=== PATIENT | female | born 1990 | race Hispanic/Latino ===

== ENCOUNTER 2019-06-12 11:20 | Inpatient (IN) | payer MEDICAID ==
[~2019-06-12] VITALS: Ht 167.6 cm; Wt 133.4 kg
[2019-06-12 13:07] LABS: HEMATOCRIT 43.8 % (36-48); MEAN CORPUSCULAR HEMOGLOBIN 31.2 pg (27.0-33.0); MEAN CORPUSCULAR HGB CONC 34.4 g/dL (32.0-36.0); MEAN CORPUSCULAR VOLUME 90.7 fL (79-99); PLATELET COUNT (AUTO) 262 K/uL (130-400); RED BLOOD CELL COUNT(AUTO) 4.83 MIL/uL (4.00-5.50); RED CELL DISTRIBUTION WIDTH 12.8 % (11.0-15.5)
[2019-06-12 13:21] LABS: CREATININE 0.6 mg/dL (0.5-1.5); POTASSIUM 4.1 mmol/L (3.5-5.1)
[2019-06-12 13:24] LABS: APPEARANCE,URINE Clear (CLEAR); BILIRUBIN,URINE Negative (NEGATIVE); COLOR,URINE Yellow (YELLOW); GLUCOSE, URINE (UA) Negative (NEGATIVE); KETONES,URINE Negative (NEGATIVE); LEUKOCYTE ESTERASE ,URINE Trace (NEGATIVE); NITRATE,URINE Negative (NEGATIVE); OCCULT BLOOD,URINE Nonhemolyzed Trace (NEGATIVE); PROTEIN,URINE POS 1+ mg/dL (NEGATIVE); UROBILINOGEN,URINE 0.2 mg/dL (0.2-1.0)
[2019-06-12 13:27] LABS: INR 0.93 (0.85-1.15); PARTIAL THROMBOPLASTIN TIME 28.8 SEC (26.3-35.5); PROTHROMBIN TIME 9.8 SEC (9.6-11.6)
[2019-06-12 13:29] LABS: ALBUMIN 2.9 g/dL (3.5-5.0); BILIRUBIN,TOTAL 0.3 mg/dL (0.2-1.0); TOTAL PROTEIN, SERUM 7.3 g/dL (6.0-8.3); URIC ACID 4.7 mg/dL (2.6-7.2)
[2019-06-12 13:50] LABS: BACTERIA,URINE Rare /HPF (None Seen); RBC,URINE 0-1 /HPF (0-1); WBC,URINE 0-1 /HPF (0-1)
[2019-06-12] MEDS: LACTATED RINGERS 1000ML 1,000 ML IV PRN (19:25)
[2019-06-12] MEDS ORDERED: ACETAMINOPHEN EXTRA STRENGTH 500 MG TABLET PO PRN (20:15)
[2019-06-13] MEDS: LACTATED RINGERS 1000ML 1,000 ML IV PRN (04:29)
[2019-06-13 05:10] LABS: HEPATITIS Bs ANTIGEN SCREEN P Negative (Negative)
[2019-06-13] MEDS ORDERED: CEFAZOLIN SODIUM 1 GM VIAL IVP PRN (06:00)
[2019-06-13] MEDS ORDERED: LACTATED RINGERS 1000ML 1,000 ML IV SCH (06:00)
[2019-06-13] MEDS ORDERED: DURAMORPH PF1 MG/ML 10ML AMP IV ONE (06:40)
[2019-06-13] MEDS ORDERED: OXYTOCIN 10 USP UNITS/ML ONE ×2 (06:40→07:11)
[2019-06-13] MEDS ORDERED: ONDANSETRON HCL 4 MG/2 ML VIAL ONE (06:40)
[2019-06-13] MEDS ORDERED: FENTANYL CITRATE PF 50 MCG/1 ML 2ML VIAL ONE (06:41)
[2019-06-13] MEDS ORDERED: CALDOLOR 800MG+NS 250ML 250 ML IV ONE (07:07)
[2019-06-13] MEDS ORDERED: METOCLOPRAMIDE 10 MG/2 ML VIAL ONE (07:13)
[2019-06-13] MEDS ORDERED: PHENYLEPHRINE HCL 10 MG/ML 1ML VIAL IV ONE (07:59)
[2019-06-13] MEDS ORDERED: DEXTROSE 5%-LACTATED RINGERS 1,000 ML IV PRN (08:34)
[2019-06-13] MEDS ORDERED: SODIUM CHLORIDE 0.9% 10 ML VIAL IVP PRN (08:45)
[2019-06-13] MEDS ORDERED: DEXTROSE 5 %-0.45 % NACL 1,000 ML IV PRN (08:45)
[2019-06-13] MEDS ORDERED: PROMETHAZINE HCL 25 MG/ML 1ML AMPULE IM PRN (08:45)
[2019-06-13] MEDS ORDERED: MEPERIDINE-PF 75 MG/ML SYG IM PRN (08:45)
[2019-06-13] MEDS ORDERED: DiphenhydrAMINE HCL 50 MG/ML VIAL ONE (10:10)
[2019-06-13] MEDS ORDERED: ONDANSETRON HCL 4 MG/2 ML VIAL IVP PRN (10:45)
[2019-06-13] MEDS ORDERED: DiphenhydrAMINE HCL 50 MG/ML VIAL IVP PRN (10:45)
[2019-06-13] MEDS ORDERED: NALOXONE HCL 0.4 MG/1 ML ML IVP PRN ×3 (10:45)
[2019-06-13] MEDS ORDERED: EPHEDRINE SULFATE 50 MG/ML AMPULE IVP PRN (10:45)
[2019-06-13 11:04] VITALS: BP 144/88
[2019-06-13 11:07] VITALS: BP 131/84
[2019-06-13] MEDS ORDERED: PNV71COM3 PO (11:26)
[2019-06-13] MEDS: ACETAMINOPHEN-CODEINE 300/30MG TAB PO PRN (14:13)
[2019-06-13] MEDS ORDERED: HYDROCODONE/ACETAMINOPHEN 5/325 MG TAB PO PRN (14:15)
[2019-06-13] MEDS ORDERED: OXYTOCIN-LR 20 UNITS/1000 ML 1,000 ML IV ONE (16:08)
[2019-06-13] MEDS: CALDOLOR 800MG+NS 250ML 250 ML IV SCH ×2 (16:20→23:52)
[2019-06-13 16:26] VITALS: BP 135/78
[2019-06-13 19:25] VITALS: BP 133/74
[2019-06-13 23:21] VITALS: BP 123/76
[2019-06-14 03:20] VITALS: BP 96/54
--- NOTE | 2019-06-14 03:30 | NUR ---
ACTIVITY/COMFORT ABD BINDER APPLIED, ASSISTED TO SIDE OF BED TO DANGLE/ DENIES ANY DIZZINESS, UP TO SIDE OF BED , TOOK STEPS TO SIT ON CHAIR , TOLERATED WELL, JESS NURSE IN TO ASSIST W/ Addendum: 06/14/19 at 0341 by EDUARDO BELLAMY LVN Amended: Links added.
[2019-06-14] MEDS: ACETAMINOPHEN-CODEINE 300/30MG TAB PO PRN (04:06)
--- NOTE | 2019-06-14 05:05 | NUR ---
ACTIVITY/THOMPSON CATHETER/COMFORT ASSISTED BACK TO BED, VERBALIZED HAD GOOD PAIN RELIEF W/MED/ F/C REMOVED, CATHETER INTACT, TOLERATED WELL, ENCOURAGED TO CALL FOR ASSISTANCE WHEN SHE HAS URGE TO VOID, ACKNOWLEDGES UNDERSTANDING Addendum: 06/14/19 at 0522 by EDUARDO BELLAMY LVN Amended: Links added.
[2019-06-14 07:07] LABS: HEMATOCRIT 34.1 % (36-48); MEAN CORPUSCULAR HEMOGLOBIN 31.6 pg (27.0-33.0); MEAN CORPUSCULAR HGB CONC 34.5 g/dL (32.0-36.0); MEAN CORPUSCULAR VOLUME 91.4 fL (79-99); PLATELET COUNT (AUTO) 196 K/uL (130-400); RED BLOOD CELL COUNT(AUTO) 3.73 MIL/uL (4.00-5.50); RED CELL DISTRIBUTION WIDTH 12.9 % (11.0-15.5); WHITE BLOOD COUNT (AUTO) 11.1 K/uL (4.8-10.8)
[2019-06-14 07:25] VITALS: BP 121/71
[2019-06-14] MEDS: IBUPROFEN 800 MG TAB PO SCH ×2 (08:25→17:21)
[2019-06-14] MEDS ORDERED: ACETAMINOPHEN EXTRA STRENGTH 500 MG TABLET PO PRN (08:30)
[2019-06-14] MEDS ORDERED: DIPHENHYDRAMINE HCL 25 MG CAPSULE PO PRN (08:30)
[2019-06-14] MEDS ORDERED: LANOLIN 30GM OINTMENT TP PRN (08:30)
[2019-06-14] MEDS ORDERED: ACETAMINOPHEN-CODEINE 300/30MG TAB PO PRN (08:30)
[2019-06-14] MEDS ORDERED: HYDROCODONE/ACETAMINOPHEN 5/325 MG TAB PO PRN (08:30)
[2019-06-14] MEDS ORDERED: BISACODYL 10 MG SUPP.RECT RC PRN (08:30)
--- NOTE | 2019-06-14 10:02 | NUR ---
ACTIVITY PT AMBULATING HALLWAY, STEADY GAIT, TOLERATING WELL, ACCOMPANIED BY SPOUSE, NO C/O PAIN
[2019-06-14] MEDS: DOCUSATE SODIUM 100 MG CAP PO SCH ×2 (10:06→21:11)
[2019-06-14] MEDS: SIMETHICONE 80 MG TAB.CHEW PO PRN ×3 (10:06→21:11)
--- NOTE | 2019-06-14 16:40 | NUR ---
ACTIVITY PT AMBULATING HALLWAY, STEADY GAIT, ACCOMPANIED BY SPOUSE, TOLERATING WELL, C/O PAIN, WILL MEDICATE WHEN RETURNS TO ROOM
[2019-06-14 17:19] VITALS: BP 118/73
--- NOTE | 2019-06-14 18:43 | NUR ---
CONSULT REQUEST MADE BY PATIENT TO SEE FITNESS MANAGEMENT DIRECTOR. PT STATES BABY HAS BEEN LATCHING "VERY WELL" THROUGHOUT STAY AND HAS BEEN VERY SUCCESSFUL AT UNTIL TODAY. STATES AT 1700 BABY DID NOT WANT TO BREASTFEED. PT STATES SHE FEELS TIRED AND OVERWHELMED AND DID NOT SLEEP LAST NIGHT. PT STATES BABY HAS BEEN HAVING VOIDS AND STOOLS AND FEELS SHE IS POSITIONING BABY WELL. REINFORCED TO MOM THAT SHE IS DOING A GOOD JOB. QUESTIONS REGARDING INVITED. ENCOURAGED PT TO LIMIT PACIFIER USE AND CONTINUE SKIN TO SKIN TO SOOTHE BABY. ENCOURAGED PT TO NOTIFY CONSULT AND NURSING STAFF FOR ANY ASSISTANCE.
[2019-06-14 19:25] VITALS: BP 126/99
--- NOTE | 2019-06-14 19:40 | NUR ---
Activity: Patient up in the bathroom took a shower. Denies any pain.
[2019-06-14 23:22] VITALS: BP 119/63
[2019-06-15] MEDS: IBUPROFEN 800 MG TAB PO SCH ×2 (00:41→08:11)
[2019-06-15 03:25] VITALS: BP 121/60
--- NOTE | 2019-06-15 08:00 | NUR ---
ASSESSMENT: RECEIVED RESTING IN BED, EXPLAINED POC AND UNDERSTANDING VERBALIZED, CALL MCGARRY AT HER SIDE.
[2019-06-15] MEDS: SIMETHICONE 80 MG TAB.CHEW PO PRN (08:11)
[2019-06-15] MEDS: DOCUSATE SODIUM 100 MG CAP PO SCH (08:11)
[2019-06-15 08:13] VITALS: BP 127/85
--- NOTE | 2019-06-15 09:10 | NUR ---
ASSESSMENT: DR NAPIER HERE AND ASSESSED PT AND DISCUSSED POC FOR DISCHARGE HOME. UNDERSTANDING VERBALIZED AND AGREES WITH POC.
--- NOTE | 2019-06-15 11:27 | NUR ---
DISCHARGE: DISCHARGE INSTRUCTIONS GIVEN TO PT ON SELF CARE POST VAGINAL DELIVERY. REVIEWED RX'S FOR HOME MEDS, TO FOLLOW UP WITH DR Lucretia LOUIE ON 07/05 AT 1345 OR SOONER IF NEEDED. UNDERSTANDING VERBALIZED AND COPIES OF ALL INSTRUCTIONS GIVEN TO PT.
[2019-06-15 11:45] VITALS: BP 118/78
--- NOTE | 2019-06-15 12:20 | NUR ---
DISCHARGE: DISCHARGED HOME WITH BABY IN HER ARMS VIA W/C TO PRIVATE CAR WITH .
== END 2019-06-15 12:20 | disposition home or self-care (01) | DRG 540 ==
LOC: LDH 11:20 → OBSVTOIN 11:20 → WSH 06-13 11:00
PROVIDERS: ADMIT Obstetrics & Gynecology; ATTEND Obstetrics & Gynecology
PROC: 10D00Z1 Extraction of Products of Conception, Low, Open Approach (ICD-10-PCS; principal; 2019-06-13 07:00)
DX: O24.420 Gestational diabetes mellitus in childbirth, diet controlled (principal); E66.01 Morbid (severe) obesity due to excess calories; O99.824 Streptococcus B carrier state complicating childbirth; O99.214 Obesity complicating childbirth; O14.04 Mild to moderate pre-eclampsia, complicating childbirth; Z37.0 Single live birth; Z3A.39 39 weeks gestation of pregnancy
CPT/HCPCS: 36415; 59510; 76805; 80053; 81001; 84550; 85027; 85384; 85610; 85730; 86592; 86850; 86900; 86901; 87340; A4344; A4450; G0378; J0690; J1200; J1741; J2274; J2370; J2405; J2590; J2765; J3010; J7120

== ENCOUNTER 2021-08-28 17:20 | Emergency (ER) | payer MEDICAID ==
[~2021-08-28] VITALS: Ht 167.6 cm; Wt 132.1 kg
[~2021-08-28 17:20] MED LIST: PNV71COM3 PO
[2021-08-28] MEDS ORDERED: PROMETHAZINE HCL 25 MG/ML 1ML AMPULE IM ONE (18:00)
[2021-08-28] MEDS ORDERED: 0.9%NACL 1000ML 1,000 ML IV ONE (18:00)
[2021-08-28 18:06] LABS: BASOPHILS % (AUTO) 0.4 % (0.0-5.0); EOSINOPHILS % (AUTO) 0.6 % (0.0-8.0); HEMATOCRIT 41.7 % (36-48); LYMPHOCYTES % (AUTO) 17.3 % (21.0-51.0); MEAN CORPUSCULAR HEMOGLOBIN 30.6 pg (27.0-33.0); MEAN CORPUSCULAR HGB CONC 34.1 g/dL (32.0-36.0); MEAN CORPUSCULAR VOLUME 89.9 fL (79-99); MONOCYTES % (AUTO) 8.6 % (3.0-13.0); NEUTROPHILS % (AUTO) 72.9 % (40.0-77.0); PLATELET COUNT (AUTO) 264 K/uL (130-400); RED BLOOD CELL COUNT(AUTO) 4.64 MIL/uL (4.00-5.50); WHITE BLOOD COUNT (AUTO) 8.2 K/uL (4.8-10.8)
[2021-08-28 18:09] LABS: APPEARANCE,URINE Clear (CLEAR); BILIRUBIN,URINE Negative (NEGATIVE); COLOR,URINE Yellow (YELLOW); GLUCOSE, URINE (UA) Negative (NEGATIVE); KETONES,URINE Trace mg/dL (NEGATIVE); LEUKOCYTE ESTERASE ,URINE Trace (NEGATIVE); NITRATE,URINE Negative (NEGATIVE); OCCULT BLOOD,URINE Negative (NEGATIVE); PH,URINE 7.5 (5.0-8.0); PROTEIN,URINE Negative (NEGATIVE)
[2021-08-28 18:16] LABS: BACTERIA,URINE Few /HPF (None Seen); RBC,URINE 0-1 /HPF (0-1); SQUAMOUS EPITHELIAL CELL,UR Moderate /HPF (0-2)
[2021-08-28 18:25] LABS: CREATININE 0.5 mg/dL (0.5-1.5); POTASSIUM 3.6 mmol/L (3.5-5.1)
[2021-08-28 18:30] LABS: ALBUMIN 3.3 g/dL (3.5-5.0); BILIRUBIN,TOTAL 0.5 mg/dL (0.2-1.0); CRP QUANTITATIVE 22.9 mg/L (0.00-9.0); TOTAL PROTEIN, SERUM 7.4 g/dL (6.0-8.3)
[2021-08-28] MEDS ORDERED: CEFTRIAXONE 1G VIAL IVP ONE (18:30)
[2021-08-28] MEDS ORDERED: ONDA4TAB10 PO (20:06)
[2021-08-28] MEDS ORDERED: CEPH500B PO (20:06)
[2021-08-28 20:31] VITALS: BP 129/90
== END 2021-08-28 20:39 | disposition home or self-care (01) ==
LOC: EDH 17:20
DX: O23.42 Unspecified infection of urinary tract in pregnancy, second trimester (principal); O98.512 Other viral diseases complicating pregnancy, second trimester; A08.4 Viral intestinal infection, unspecified; O99.212 Obesity complicating pregnancy, second trimester; E66.9 Obesity, unspecified; Z79.899 Other long term (current) drug therapy; Z3A.15 15 weeks gestation of pregnancy
CPT/HCPCS: 36415; 76817; 80053; 81001; 85025; 86140; 96361; 96372; 96374; 99285; J0696; J2550; J7030

== ENCOUNTER 2021-11-02 16:23 | Emergency (ER) | payer MEDICAID ==
[~2021-11-02] VITALS: Ht 167.6 cm; Wt 132.0 kg
[~2021-11-02 16:23] MED LIST changes: +CEPH500B PO; +ONDA4TAB10 PO
[2021-11-02 20:31] LABS: BASOPHILS % (AUTO) 0.4 % (0.0-5.0); EOSINOPHILS % (AUTO) 0.9 % (0.0-8.0); HEMATOCRIT 40.9 % (36-48); LYMPHOCYTES % (AUTO) 26.3 % (21.0-51.0); MEAN CORPUSCULAR HGB CONC 32.5 g/dL (32.0-36.0); MEAN CORPUSCULAR VOLUME 92.1 fL (79-99); MONOCYTES % (AUTO) 5.6 % (3.0-13.0); NEUTROPHILS % (AUTO) 66.3 % (40.0-77.0); PLATELET COUNT (AUTO) 286 K/uL (130-400); RED BLOOD CELL COUNT(AUTO) 4.44 MIL/uL (4.00-5.50); RED CELL DISTRIBUTION WIDTH 12.3 % (11.0-15.5); WHITE BLOOD COUNT (AUTO) 10.8 K/uL (4.8-10.8)
[2021-11-02 20:51] LABS: CREATININE 0.5 mg/dL (0.5-1.5); POTASSIUM 3.7 mmol/L (3.5-5.1)
[2021-11-02 20:56] LABS: ALBUMIN 3.2 g/dL (3.5-5.0); BILIRUBIN,TOTAL 0.3 mg/dL (0.2-1.0); TOTAL PROTEIN, SERUM 7.7 g/dL (6.0-8.3)
[2021-11-02] MEDS ORDERED: AZITHROMYCIN 250 MG TABLET PO ONE ×2 (21:39→22:00)
[2021-11-02] MEDS ORDERED: ALBU8.5H8 IH (22:10)
[2021-11-02] MEDS ORDERED: AZIT250T9 PO (22:10)
[2021-11-02 22:16] VITALS: BP 138/86
== END 2021-11-02 22:19 | disposition home or self-care (01) ==
LOC: EDH 16:23
DX: O26.892 Other specified pregnancy related conditions, second trimester (principal); R05.9 Cough, unspecified; R07.89 Other chest pain; R51.9 Headache, unspecified; Z20.822 Contact with and (suspected) exposure to COVID-19; Z79.899 Other long term (current) drug therapy; Z3A.23 23 weeks gestation of pregnancy
CPT/HCPCS: 36415; 71045; 80053; 84145; 85025; 86140; 87635; 87804 ×2; 99284; C9803

== ENCOUNTER 2022-01-06 14:47 | Observation (INO) | payer MEDICAID ==
[~2022-01-06] VITALS: Ht 167.6 cm; Wt 137.9 kg
[~2022-01-06 14:47] MED LIST changes: +ALBU8.5H8 IH; +AZIT250T9 PO
[2022-01-06 15:43] LABS: APPEARANCE,URINE Clear (CLEAR); BILIRUBIN,URINE Negative (NEGATIVE); COLOR,URINE Yellow (YELLOW); GLUCOSE, URINE (UA) Negative (NEGATIVE); KETONES,URINE 15 mg/dL (NEGATIVE); LEUKOCYTE ESTERASE ,URINE Negative (NEGATIVE); NITRATE,URINE Negative (NEGATIVE); OCCULT BLOOD,URINE Negative (NEGATIVE); PROTEIN,URINE Negative (NEGATIVE); UROBILINOGEN,URINE 0.2 mg/dL (0.2-1.0)
[2022-01-06] MEDS: LACTATED RINGERS 1000ML IV SCH ×2 (16:00→17:06)
[2022-01-06 16:03] LABS: BASOPHILS % (AUTO) 0.2 % (0.0-5.0); EOSINOPHILS % (AUTO) 0.4 % (0.0-8.0); HEMATOCRIT 41.8 % (36-48); LYMPHOCYTES % (AUTO) 20.8 % (21.0-51.0); MEAN CORPUSCULAR HEMOGLOBIN 29.7 pg (27.0-33.0); MEAN CORPUSCULAR HGB CONC 32.8 g/dL (32.0-36.0); MEAN CORPUSCULAR VOLUME 90.7 fL (79-99); MONOCYTES % (AUTO) 4.4 % (3.0-13.0); NEUTROPHILS % (AUTO) 73.9 % (40.0-77.0); PLATELET COUNT (AUTO) 253 K/uL (130-400); RED BLOOD CELL COUNT(AUTO) 4.61 MIL/uL (4.00-5.50); RED CELL DISTRIBUTION WIDTH 12.4 % (11.0-15.5); WHITE BLOOD COUNT (AUTO) 10.3 K/uL (4.8-10.8)
[2022-01-06 16:13] LABS: CREATININE 0.6 mg/dL (0.5-1.5); POTASSIUM 3.5 mmol/L (3.5-5.1)
[2022-01-06 16:15] LABS: INR 0.93 (0.85-1.15); PROTHROMBIN TIME 10.2 SEC (9.6-11.6)
[2022-01-06 16:16] LABS: PARTIAL THROMBOPLASTIN TIME 27.6 SEC (26.3-35.5)
[2022-01-06 16:18] LABS: ALBUMIN 3.1 g/dL (3.5-5.0); BILIRUBIN,TOTAL 0.2 mg/dL (0.2-1.0); TOTAL PROTEIN, SERUM 7.7 g/dL (6.0-8.3); URIC ACID 4.4 mg/dL (2.6-7.2)
[2022-01-07 17:47] LABS: CREATININE,SERUM FOR CRCL 0.6 mg/dL (0.6-1.3)
[2022-01-07 18:10] LABS: COLLECTION PERIOD,URINE 24 HR; TOTAL VOLUME 24HRS,URINE 1400 mL; TPROTEIN TIMED,URINE 17 mg/dL; TPROTEIN U,24HR CALC 238 mg/24HR (0-165)
== END 2022-01-06 18:00 | disposition home or self-care (01) ==
LOC: LDH 14:47
PROVIDERS: ADMIT Obstetrics & Gynecology; ATTEND Obstetrics & Gynecology
DX: O13.3 Gestational [pregnancy-induced] hypertension without significant proteinuria, third trimester (principal); Z3A.35 35 weeks gestation of pregnancy; Z98.891 History of uterine scar from previous surgery; Z79.899 Other long term (current) drug therapy
CPT/HCPCS: 36415; 59025; 76805; 80053; 81003; 82575; 84156; 84550; 85025; 85384; 85610; 85730; 96360; 96361; G0378 ×3; G0379

== ENCOUNTER 2022-01-14 00:30 | Observation (INO) | payer MEDICAID ==
[~2022-01-14] VITALS: Ht 167.6 cm; Wt 140.6 kg
[2022-01-14 00:56] VITALS: BP 150/83
[2022-01-14 01:28] LABS: APPEARANCE,URINE Clear (CLEAR); BILIRUBIN,URINE Negative (NEGATIVE); COLOR,URINE Yellow (YELLOW); GLUCOSE, URINE (UA) Negative (NEGATIVE); KETONES,URINE Negative (NEGATIVE); LEUKOCYTE ESTERASE ,URINE Trace (NEGATIVE); NITRATE,URINE Negative (NEGATIVE); OCCULT BLOOD,URINE Negative (NEGATIVE); PH,URINE 7.5 (5.0-8.0); PROTEIN,URINE Negative (NEGATIVE); UROBILINOGEN,URINE 0.2 mg/dL (0.2-1.0)
[2022-01-14] MEDS ORDERED: LACTATED RINGERS 1000ML IV SCH (01:30)
[2022-01-14 02:11] LABS: BACTERIA,URINE Few /HPF (None Seen); RBC,URINE 0-1 /HPF (0-1)
[2022-01-14 02:20] LABS: BASOPHILS % (AUTO) 0.4 % (0.0-5.0); EOSINOPHILS % (AUTO) 1.1 % (0.0-8.0); HEMATOCRIT 38.2 % (36-48); LYMPHOCYTES % (AUTO) 27.4 % (21.0-51.0); MEAN CORPUSCULAR HEMOGLOBIN 30.5 pg (27.0-33.0); MEAN CORPUSCULAR HGB CONC 33.5 g/dL (32.0-36.0); MONOCYTES % (AUTO) 6.7 % (3.0-13.0); NEUTROPHILS % (AUTO) 64.2 % (40.0-77.0); PLATELET COUNT (AUTO) 248 K/uL (130-400); RED CELL DISTRIBUTION WIDTH 12.6 % (11.0-15.5); WHITE BLOOD COUNT (AUTO) 10.7 K/uL (4.8-10.8)
[2022-01-14 02:29] LABS: CREATININE 0.6 mg/dL (0.5-1.5); POTASSIUM 3.7 mmol/L (3.5-5.1)
[2022-01-14 02:34] LABS: ALBUMIN 2.8 g/dL (3.5-5.0); BILIRUBIN,TOTAL 0.2 mg/dL (0.2-1.0); TOTAL PROTEIN, SERUM 6.9 g/dL (6.0-8.3); URIC ACID 4.1 mg/dL (2.6-7.2)
[2022-01-14 02:36] LABS: INR 0.93 (0.85-1.15); PROTHROMBIN TIME 10.2 SEC (9.6-11.6)
[2022-01-14 02:38] LABS: PARTIAL THROMBOPLASTIN TIME 27.8 SEC (26.3-35.5)
== END 2022-01-14 03:45 | disposition home or self-care (01) ==
LOC: EDH 00:30 → LDH 00:31 → EDH 01:01
PROVIDERS: ADMIT Obstetrics & Gynecology; ATTEND Obstetrics & Gynecology
DX: O26.893 Other specified pregnancy related conditions, third trimester (principal); R03.0 Elevated blood-pressure reading, without diagnosis of hypertension; R60.0 Localized edema; O36.8130 Decreased fetal movements, third trimester, not applicable or unspecified; Z3A.37 37 weeks gestation of pregnancy
CPT/HCPCS: 36415; 59025; 76819; 80053; 81001; 84550; 85025; 85384; 85610; 85730; G0378 ×3

== ENCOUNTER 2022-01-16 20:17 | Observation (INO) | payer MEDICAID ==
[~2022-01-16] VITALS: Ht 167.6 cm; Wt 140.2 kg
[2022-01-16 21:03] VITALS: BP 148/91
[2022-01-16] MEDS ORDERED: CETI10CA5 PO (21:09)
[2022-01-16] MEDS ORDERED: PREN1TAB80 PO (21:09)
[2022-01-16 21:10] LABS: APPEARANCE,URINE Clear (CLEAR); BILIRUBIN,URINE Negative (NEGATIVE); COLOR,URINE Yellow (YELLOW); GLUCOSE, URINE (UA) Negative (NEGATIVE); KETONES,URINE Negative (NEGATIVE); LEUKOCYTE ESTERASE ,URINE Trace (NEGATIVE); NITRATE,URINE Negative (NEGATIVE); OCCULT BLOOD,URINE Negative (NEGATIVE); PROTEIN,URINE Negative (NEGATIVE); UROBILINOGEN,URINE 0.2 mg/dL (0.2-1.0)
[2022-01-16 21:17] LABS: AMPHET/METH SCREEN,URINE NEGATIVE (NEGATIVE); BARBITURATE SCREEN, URINE NEGATIVE (NEGATIVE); BENZODIAZEPINES SCREEN,URINE NEGATIVE (NEGATIVE); CANNABINOID SCREEN,URINE NEGATIVE (NEGATIVE); COCAINE SCREEN,URINE NEGATIVE (NEGATIVE); OPIATE SCREEN,URINE NEGATIVE (NEGATIVE); PHENCYCLIDINE SCREEN,URINE NEGATIVE (NEGATIVE)
[2022-01-16 21:20] LABS: AMORPHOUS SEDIMENT,UR Few /LPF (None Seen); BACTERIA,URINE Few /HPF (None Seen); MUCUS,URINE Rare LPF (None Seen); RBC,URINE 0-1 /HPF (0-1); SQUAMOUS EPITHELIAL CELL,UR Rare /HPF (0-2)
== END 2022-01-16 22:00 | disposition home or self-care (01) ==
LOC: EDH 20:17 → LDH 20:18
PROVIDERS: ADMIT Obstetrics & Gynecology; ATTEND Obstetrics & Gynecology
DX: O36.8130 Decreased fetal movements, third trimester, not applicable or unspecified (principal); O14.93 Unspecified pre-eclampsia, third trimester; O62.9 Abnormality of forces of labor, unspecified; Z3A.37 37 weeks gestation of pregnancy; Z79.899 Other long term (current) drug therapy
CPT/HCPCS: 59025; 80305; 81001; G0378; G0379

== ENCOUNTER 2022-01-20 10:25 | Observation (INO) | payer MEDICAID ==
[~2022-01-20] VITALS: Ht 167.6 cm; Wt 139.7 kg
[~2022-01-20 10:25] MED LIST changes: +CETI10CA5 PO; +PREN1TAB80 PO
[2022-01-20] MEDS ORDERED: LACTATED RINGERS 1000ML 1,000 ML IV PRN (11:30)
[2022-01-20 11:36] LABS: HEMATOCRIT 40.3 % (36-48); MEAN CORPUSCULAR HEMOGLOBIN 30.6 pg (27.0-33.0); MEAN CORPUSCULAR HGB CONC 33.5 g/dL (32.0-36.0); MEAN CORPUSCULAR VOLUME 91.4 fL (79-99); RED BLOOD CELL COUNT(AUTO) 4.41 MIL/uL (4.00-5.50); RED CELL DISTRIBUTION WIDTH 12.6 % (11.0-15.5); WHITE BLOOD COUNT (AUTO) 10.1 K/uL (4.8-10.8)
[2022-01-20 11:40] LABS: CREATININE 0.5 mg/dL (0.5-1.5); POTASSIUM 4.3 mmol/L (3.5-5.1)
[2022-01-20 11:45] LABS: ALBUMIN 2.8 g/dL (3.5-5.0); BILIRUBIN,TOTAL 0.3 mg/dL (0.2-1.0); TOTAL PROTEIN, SERUM 6.8 g/dL (6.0-8.3); URIC ACID 4.1 mg/dL (2.6-7.2)
[2022-01-20 11:50] LABS: INR 0.93 (0.85-1.15); PROTHROMBIN TIME 9.7 SEC (9.6-11.6)
[2022-01-20 11:51] LABS: APPEARANCE,URINE Clear (CLEAR); BILIRUBIN,URINE Negative (NEGATIVE); COLOR,URINE Yellow (YELLOW); GLUCOSE, URINE (UA) Negative (NEGATIVE); KETONES,URINE Negative (NEGATIVE); LEUKOCYTE ESTERASE ,URINE Small (NEGATIVE); NITRATE,URINE Negative (NEGATIVE); OCCULT BLOOD,URINE Negative (NEGATIVE); PROTEIN,URINE Negative (NEGATIVE); UROBILINOGEN,URINE 0.2 mg/dL (0.2-1.0)
[2022-01-20 11:51] LABS: PARTIAL THROMBOPLASTIN TIME 27.4 SEC (26.3-35.5)
[2022-01-20 12:08] LABS: BACTERIA,URINE Few /HPF (None Seen); RBC,URINE 0-1 /HPF (0-1); SQUAMOUS EPITHELIAL CELL,UR Few /HPF (0-2)
[2022-01-21 10:09] LABS: RAPID PLASMA REAGIN NONREACTIVE (NONREACTIVE)
== END 2022-01-20 12:50 | disposition home or self-care (01) ==
LOC: INTOOBSV 10:25 → LDH 10:25
PROVIDERS: ADMIT Obstetrics & Gynecology; ATTEND Obstetrics & Gynecology
DX: O14.93 Unspecified pre-eclampsia, third trimester (principal); O99.213 Obesity complicating pregnancy, third trimester; E66.01 Morbid (severe) obesity due to excess calories; Z3A.37 37 weeks gestation of pregnancy; Z98.891 History of uterine scar from previous surgery; Z79.899 Other long term (current) drug therapy; Z98.890 Other specified postprocedural states
CPT/HCPCS: 36415; 59025; 80053; 81001; 84550; 85027; 85384; 85610; 85730; 86592; 86701; 86850; 86900; 86901; 87340; 87390; 96360; 96361; G0378; J7120

== ENCOUNTER 2022-01-29 21:07 | Observation (INO) | payer MEDICAID ==
[~2022-01-29] VITALS: Ht 167.6 cm; Wt 137.0 kg
[~2022-01-29 21:07] MED LIST changes: +ACET-2079 PO; -ALBU8.5H8 IH; -AZIT250T9 PO; -CEPH500B PO; +DOCU-116 PO; +IBUP-2077 PO; -ONDA4TAB10 PO; -PNV71COM3 PO
[2022-01-29] MEDS ORDERED: PHARMACY COMMUNICATION MISC SCH ×2 (22:00→22:30)
[2022-01-29] MEDS ORDERED: HYDROCODONE/ACETAMINOPHEN 10/325 MG TAB PO PRN ×2 (22:00→22:30)
[2022-01-29 22:05] VITALS: BP 153/80
[2022-01-29 22:11] LABS: BASOPHILS % (AUTO) 0.3 % (0.0-5.0); HEMATOCRIT 36.9 % (36-48); LYMPHOCYTES % (AUTO) 24.7 % (21.0-51.0); MEAN CORPUSCULAR HEMOGLOBIN 30.5 pg (27.0-33.0); MEAN CORPUSCULAR HGB CONC 32.8 g/dL (32.0-36.0); MEAN CORPUSCULAR VOLUME 92.9 fL (79-99); MONOCYTES % (AUTO) 8.1 % (3.0-13.0); NEUTROPHILS % (AUTO) 63.7 % (40.0-77.0); PLATELET COUNT (AUTO) 299 K/uL (130-400); RED BLOOD CELL COUNT(AUTO) 3.97 MIL/uL (4.00-5.50); RED CELL DISTRIBUTION WIDTH 12.5 % (11.0-15.5); WHITE BLOOD COUNT (AUTO) 9.6 K/uL (4.8-10.8)
[2022-01-29 22:18] VITALS: BP 126/63
[2022-01-29 22:32] VITALS: BP 135/71
[2022-01-29] MEDS ORDERED: HYDROCODONE/ACETAMINOPHEN 5/325 MG TAB ONE (22:36)
[2022-01-29 22:46] LABS: CREATININE 0.9 mg/dL (0.5-1.5); POTASSIUM 4.4 mmol/L (3.5-5.1)
[2022-01-29 22:47] VITALS: BP 124/70
[2022-01-29 22:51] LABS: ALBUMIN 2.5 g/dL (3.5-5.0); BILIRUBIN,TOTAL 0.3 mg/dL (0.2-1.0); TOTAL PROTEIN, SERUM 6.8 g/dL (6.0-8.3); URIC ACID 4.2 mg/dL (2.6-7.2)
[2022-01-29 22:53] LABS: INR 0.93 (0.85-1.15); PROTHROMBIN TIME 9.7 SEC (9.6-11.6)
[2022-01-29 22:55] LABS: PARTIAL THROMBOPLASTIN TIME 29.1 SEC (26.3-35.5)
[2022-01-29 23:02] VITALS: BP 130/77
[2022-01-30] MEDS ORDERED: LACTATED RINGERS 1000ML IV SCH
[2022-01-30] MEDS ORDERED: PROMETHAZINE HCL 25 MG/ML 1ML AMPULE IM PRN
[2022-01-30] MEDS ORDERED: MEPERIDINE-PF 75 MG/ML SYG IM PRN
[2022-01-30 01:24] VITALS: BP 124/90
[2022-01-30] MEDS ORDERED: HYDROCODONE/ACETAMINOPHEN 5/325 MG TAB PO PRN (03:30)
[2022-01-30 03:39] VITALS: BP 133/81
[2022-01-30 07:26] VITALS: BP 125/70
[2022-01-30] MEDS ORDERED: BUTALB/ACETAMINOPHEN/CAFFEINE 1 EACH TABLET PO PRN (11:00)
[2022-01-30 11:13] VITALS: BP 116/76
== END 2022-01-30 15:50 | disposition home or self-care (01) ==
LOC: LDH 21:07 → WSH 01-30 01:22
PROVIDERS: ADMIT Obstetrics & Gynecology; ATTEND Obstetrics & Gynecology
DX: O14.94 Unspecified pre-eclampsia, complicating childbirth (principal)
CPT/HCPCS: 36415; 80053; 82044; 84550; 85025; 85384; 85610; 85730; 96360; 96361; G0378 ×19; G0379; J7120